=== PATIENT | male | born 1985 | race American Indian/Alaskan Native ===

== ENCOUNTER 2021-12-02 12:23 | Emergency (ER) | payer SELFPAY ==
[2021-12-02] MEDS ORDERED: MORPHINE 4 MG/1 ML INJ IV ONE ×2 (15:21→19:49)
[2021-12-02] MEDS ORDERED: ONDANSETRON 4 MG/2 ML INJ IV ONE (15:21)
[2021-12-02] MEDS ORDERED: SODIUM CHLORIDE 0.9% 1000 ML 1,000 ML IV ONE ×2 (15:21→18:03)
--- NOTE | 2021-12-02 16:09 | Emergency Department Report ---
ED General Adult HPI - General Chief complaint: Chest Pain Stated complaint: CHEST PAIN Time Seen by Provider: 12/02/21 14:17 Source: patient, EMS Mode of arrival: Stretcher Limitations: No Limitations - History of Present Illness Initial comments: Patient presents to the emergency department the chief complaint of left-sided chest pain that started this morning upon awakening. Patient describes the pain as sharp in nature and denies any radiation. Patient also complains of having abdominal pain. Patient states he has history of pancreatitis and this feels like a pancreatitis flare. patient states that he drinks vodka daily but cannot give me an amount. The patient denies having a headache or shortness of breath. -: Sudden Location: chest, abdomen Radiation: non-radiation, other (Abdominal pain radiates to the scapula) Severity scale (0 -10): 7 Quality: sharp Consistency: constant Improves with: none Worsens with: none Associated Symptoms: denies other symptoms Treatments Prior to Arrival: none - Related Data Previous Rx's Medication Instructions Recorded Last Taken Type HYDROcodone/APAP 5-325 [[place] 1 each PO Q6HR PRN #12 tablet 12/02/21 Unknown Rx 5/325] Ondansetron [Zofran Odt] 4 mg PO Q8HR #20 tab.rapdis 12/02/21 Unknown Rx hydroCHLOROthiazide [Hctz] 12.5 mg PO QDAY #30 capsule 12/02/21 Unknown Rx Allergies Allergy/AdvReac Type Severity Reaction Status Date / Time No Known Allergies Allergy Unverified 12/02/21 13:02 ED Review of Systems ROS: Stated complaint: CHEST PAIN Other details as noted in HPI Comment: All other systems reviewed and negative Constitutional: denies: chills, fever Eyes: denies: eye pain, eye discharge, vision change ENT: denies: ear pain, throat pain Respiratory: denies: cough, shortness of breath, wheezing Cardiovascular: chest pain. denies: palpitations Endocrine: no symptoms reported Gastrointestinal: abdominal pain. denies: nausea, diarrhea Genitourinary: denies: urgency, dysuria Musculoskeletal: denies: back pain, joint swelling, arthralgia Skin: denies: rash, lesions Neurological: denies: headache, weakness, paresthesias Psychiatric: denies: anxiety, depression Hematological/Lymphatic: denies: easy bleeding, easy bruising ED Past Medical Hx - Past Medical History Previous Medical History?: Yes Hx Hypertension: Yes Hx Asthma: Yes Additional medical history: Pancreatitis - Surgical History Past Surgical History?: No - Social History Smoking Status: Current Every Day Smoker Substance Use Type: Alcohol - Medications Home Medications: Home Medications Medication Instructions Recorded Confirmed Last Taken Type HYDROcodone/APAP 5-325 [[place] 1 each PO Q6HR PRN #12 tablet 12/02/21 Unknown Rx 5/325] Ondansetron [Zofran Odt] 4 mg PO Q8HR #20 tab.rapdis 12/02/21 Unknown Rx hydroCHLOROthiazide [Hctz] 12.5 mg PO QDAY #30 capsule 12/02/21 Unknown Rx ED Physical Exam - General Limitations: No Limitations General appearance: alert, in no apparent distress - Head Head exam: Present: atraumatic, normocephalic - Eye Eye exam: Present: normal appearance, PERRL, EOMI - ENT ENT exam: Present: mucous membranes moist - Neck Neck exam: Present: normal inspection - Respiratory Respiratory exam: Present: normal lung sounds bilaterally. Absent: respiratory distress - Cardiovascular Cardiovascular Exam: Present: regular rate, normal rhythm. Absent: systolic murmur, diastolic murmur, rubs, gallop - GI/Abdominal GI/Abdominal exam: Present: soft, tenderness (TTP epigastric region), normal bowel sounds. Absent: distended - Rectal Rectal exam: Present: deferred - Extremities Exam Extremities exam: Present: normal inspection - Back Exam Back exam: Present: normal inspection - Neurological Exam Neurological exam: Present: alert, oriented X3, CN II-XII intact. Absent: motor sensory deficit - Psychiatric Psychiatric exam: Present: normal affect, normal mood - Skin Skin exam: Present: warm, dry, intact, normal color. Absent: rash ED Course Vital Signs 12/02/21 12/02/21 12/02/21 12:58 13:59 14:34 Temperature 98.4 F 98.7 F Pulse Rate 84 80 79 Respiratory 16 12 Rate Blood Pressure 155/86 Blood Pressure 150/90 155/86 [Left] O2 Sat by Pulse 98 100 Oximetry 12/02/21 12/02/21 12/02/21 15:55 16:57 18:02 Temperature Pulse Rate 74 85 79 Respiratory 14 15 15 Rate Blood Pressure Blood Pressure 158/85 147/86 169/86 [Left] O2 Sat by Pulse 99 99 100 Oximetry ED Medical Decision Making - Lab Data Result diagrams: 12/02/21 15:49 12/02/21 15:49 Lab Results 12/02/21 12/02/21 12/02/21 Range/Units 15:49 15:49 15:49 WBC 9.1 (4.5-11.0) K/mm3 RBC 4.96 (3.65-5.03) M/mm3 Hgb 11.7 L (11.8-15.2) gm/dl Hct 36.8 (35.5-45.6) % MCV 74 L (84-94) fl MCH 24 L (28-32) pg MCHC 32 (32-34) % RDW 17.7 H (13.2-15.2) % Plt Count 302 (140-440) K/mm3 Add Manual Diff Complete Total Counted 100 Seg Neuts % (Manual) 85.0 H (40.0-70.0) % Band Neutrophils % 0 % Lymphocytes % (Manual) 8.0 L (13.4-35.0) % Reactive Lymphs % (Man) 0 % Monocytes % (Manual) 4.0 (0.0-7.3) % Eosinophils % (Manual) 1.0 (0.0-4.3) % Basophils % (Manual) 2.0 H (0.0-1.8) % Metamyelocytes % 0 % Myelocytes % 0 % Promyelocytes % 0 % Blast Cells % 0 % Nucleated RBC % Not Reportable Seg Neutrophils # Man 7.7 (1.8-7.7) K/mm3 Band Neutrophils # 0.0 K/mm3 Lymphocytes # (Manual) 0.7 L (1.2-5.4) K/mm3 Abs React Lymphs (Man) 0.0 K/mm3 Monocytes # (Manual) 0.4 (0.0-0.8) K/mm3 Eosinophils # (Manual) 0.1 (0.0-0.4) K/mm3 Basophils # (Manual) 0.2 H (0.0-0.1) K/mm3 Metamyelocytes # 0.0 K/mm3 Myelocytes # 0.0 K/mm3 Promyelocytes # 0.0 K/mm3 Blast Cells # 0.0 K/mm3 WBC Morphology Not Reportable Hypersegmented Neuts Not Reportable Hyposegmented Neuts Not Reportable Hypogranular Neuts Not Reportable Smudge Cells Not Reportable Toxic Granulation Not Reportable Toxic Vacuolation Not Reportable Dohle Bodies Not Reportable Pelger-Huet Anomaly Not Reportable Huyen Rods Not Reportable Platelet Estimate Consistent w auto Clumped Platelets Not Reportable Plt Clumps, EDTA Not Reportable Large Platelets Not Reportable Giant Platelets Not Reportable Platelet Satelliting Not Reportable Plt Morphology Comment Not Reportable RBC Morphology Not Reportable Dimorphic RBCs Not Reportable Polychromasia Not Reportable Hypochromasia 1+ Poikilocytosis 1+ Anisocytosis 1+ Microcytosis 1+ Macrocytosis Rare Spherocytes Rare Pappenheimer Bodies Not Reportable Sickle Cells Not Reportable Target Cells 1+ Tear Drop Cells Not Reportable Ovalocytes Not Reportable Helmet Cells Not Reportable Flaherty-Aptos Bodies Not Reportable [place] Rings Not Reportable Leslie Cells Not Reportable Bite Cells Not Reportable Crenated Cell Not Reportable Elliptocytes Not Reportable Acanthocytes (Spur) Not Reportable Rouleaux Not Reportable Hemoglobin C Crystals Not Reportable Schistocytes Rare Malaria parasites Not Reportable Jc Bodies Not Reportable Hem Pathologist Commnt No Sodium 141 (137-145) mmol/L Potassium 3.6 (3.6-5.0) mmol/L Chloride 99.5 (98-107) mmol/L Carbon Dioxide 22 (22-30) mmol/L Anion Gap 23 mmol/L BUN 8 L (9-20) mg/dL Creatinine 0.6 L (0.8-1.3) mg/dL Estimated GFR > 60 ml/min BUN/Creatinine Ratio 13 % Glucose 64 L (75-100) mg/dL Calcium 9.1 (8.4-10.2) mg/dL Magnesium 1.60 L (1.7-2.3) mg/dL Total Bilirubin 0.50 (0.1-1.2) mg/dL AST 30 (5-40) units/L ALT 24 (7-56) units/L Alkaline Phosphatase 77 (35-129) units/L Troponin T < 0.010 (0.00-0.029) ng/mL Total Protein 7.2 (6.3-8.2) g/dL Albumin 4.4 (3.9-5) g/dL Albumin/Globulin Ratio 1.6 % Lipase 31 (13-60) units/L 12/02/21 Range/Units 17:22 WBC (4.5-11.0) K/mm3 RBC (3.65-5.03) M/mm3 Hgb (11.8-15.2) gm/dl Hct (35.5-45.6) % MCV (84-94) fl MCH (28-32) pg MCHC (32-34) % RDW (13.2-15.2) % Plt Count (140-440) K/mm3 Add Manual Diff Total Counted Seg Neuts % (Manual) (40.0-70.0) % Band Neutrophils % % Lymphocytes % (Manual) (13.4-35.0) % Reactive Lymphs % (Man) % Monocytes % (Manual) (0.0-7.3) % Eosinophils % (Manual) (0.0-4.3) % Basophils % (Manual) (0.0-1.8) % Metamyelocytes % % Myelocytes % % Promyelocytes % % Blast Cells % % Nucleated RBC % Seg Neutrophils # Man (1.8-7.7) K/mm3 Band Neutrophils # K/mm3 Lymphocytes # (Manual) (1.2-5.4) K/mm3 Abs React Lymphs (Man) K/mm3 Monocytes # (Manual) (0.0-0.8) K/mm3 Eosinophils # (Manual) (0.0-0.4) K/mm3 Basophils # (Manual) (0.0-0.1) K/mm3 Metamyelocytes # K/mm3 Myelocytes # K/mm3 Promyelocytes # K/mm3 Blast Cells # K/mm3 WBC Morphology Hypersegmented Neuts Hyposegmented Neuts Hypogranular Neuts Smudge Cells Toxic Granulation Toxic Vacuolation Dohle Bodies Pelger-Huet Anomaly Huyen Rods Platelet Estimate Clumped Platelets Plt Clumps, EDTA Large Platelets Giant Platelets Platelet Satelliting Plt Morphology Comment RBC Morphology Dimorphic RBCs Polychromasia Hypochromasia Poikilocytosis Anisocytosis Microcytosis Macrocytosis Spherocytes Pappenheimer Bodies Sickle Cells Target Cells Tear Drop Cells Ovalocytes Helmet Cells Flaherty-Aptos Bodies [place] Rings Leslie Cells Bite Cells Crenated Cell Elliptocytes Acanthocytes (Spur) Rouleaux Hemoglobin C Crystals Schistocytes Malaria parasites Jc Bodies Hem Pathologist Commnt Sodium (137-145) mmol/L Potassium (3.6-5.0) mmol/L Chloride (98-107) mmol/L Carbon Dioxide (22-30) mmol/L Anion Gap mmol/L BUN (9-20) mg/dL Creatinine (0.8-1.3) mg/dL Estimated GFR ml/min BUN/Creatinine Ratio % Glucose (75-100) mg/dL Calcium (8.4-10.2) mg/dL Magnesium (1.7-2.3) mg/dL Total Bilirubin (0.1-1.2) mg/dL AST (5-40) units/L ALT (7-56) units/L Alkaline Phosphatase (35-129) units/L Troponin T < 0.010 (0.00-0.029) ng/mL Total Protein (6.3-8.2) g/dL Albumin (3.9-5) g/dL Albumin/Globulin Ratio % Lipase (13-60) units/L Critical care attestation.: If time is entered above; I have spent that time in minutes in the direct care of this critically ill patient, excluding procedure time. ED Disposition Clinical Impression: Hypertension, Nonspecific chest pain, Pancreatitis Disposition: 01 HOME / SELF CARE / HOMELESS Is pt being admited?: No Does the pt Need Aspirin: No Condition: Stable Instructions: Hypertension (ED), Nonspecific Chest Pain, Adult, Chronic P ancreatitis, Acute Pancreatitis Additional Instructions: return if worse Prescriptions: hydroCHLOROthiazide [Hctz] 12.5 mg PO QDAY #30 capsule HYDROcodone/APAP 5-325 [[place] 5/325] 1 each PO Q6HR PRN #12 tablet PRN Reason: Pain Ondansetron [Zofran Odt] 4 mg PO Q8HR #20 tab.rapdis Referrals: PRIMARY CARE, [Primary Care Provider] - 3-5 Days MAXWELL JOSEPH MD [Staff Physician] - 3-5 Days Time of Disposition: 19:53
[2021-12-02 16:10] LABS: Hematocrit 36.8 % (35.5-45.6); Hemoglobin 11.7 gm/dl (11.8-15.2); Mean Corpuscular HGB Conc 32 % (32-34); Mean Corpuscular Volume 74 fl (84-94); Platelet Count 302 K/mm3 (140-440); Red Blood Count 4.96 M/mm3 (3.65-5.03); Red Cell Distribution Width 17.7 % (13.2-15.2)
[2021-12-02 16:31] LABS: Alanine Aminotransferase 24 units/L (7-56); Albumin 4.4 g/dL (3.9-5); Blood Urea Nitrogen 8 mg/dL (9-20); Calcium 9.1 mg/dL (8.4-10.2); Hemolysis Index 0
[2021-12-02 16:34] LABS: BUN/Creatinine Ratio 13
[2021-12-02 17:45] LABS: Total Cells Counted 100
[2021-12-02 17:47] LABS: Anisocytosis 1+; Hypochromasia 1+; Macrocytosis Rare
[2021-12-02 17:48] LABS: Platelet Estimate Consistent w Auto; Poikilocytosis 1+; Schistocytes Rare; Spherocytes Rare; Target Cells 1+
--- NOTE | 2021-12-02 17:51 | Cat Scan Report ---
CT ABDOMEN AND PELVIS WITH IV CONTRAST INDICATION: epigastric abdominal pain. COMPARISON: None available. TECHNIQUE: All CT scans at this facility use dose modulation, automated exposure control, iterative reconstructi on or weight based dosing, when appropriate, to reduce radiation dose to as low as reasonably achieva ble. FINDINGS: Lung Bases: No significant abnormality. Skeletal System: No acute abnormality. ABDOMEN: Liver: Advanced diffuse hepatic steatosis. Hepatomegaly. Gallbladder: No significant abnormality. Bile Ducts: No significant abnormality. Adrenals: No significant abnormality. Right Kidney: No significant abnormality. Left Kidney: No significant abnormality. Pancreas: The pancreatic head is edematous. Within the pancreatic head, there is a circumscribed 1.3 cm low-density focus which may be cystic. The pancreatic body and tail are unremarkable. There is no duct dilatation. Spleen: No significant abnormality. Upper GI tract: No significant abnormality. Lymph Nodes: No significant adenopathy. Aorta: No significant abnormality. Additional Findings: No significant abnormality. PELVIS: Colon: No significant abnormality. Urinary Bladder and Distal Ureters: No significant abnormality. Appendix: No significant abnormality. Lymph Nodes: No significant adenopathy. Additional Findings: None. IMPRESSION: 1. Pancreatic head is mildly edematous suggestive of focal pancreatitis. 1.3 cm cyst in the pancreat ic head may be a pancreatitis related fluid collection. Gallbladder is unremarkable. No biliary dilat ation. 2. Hepatomegaly and advanced hepatic steatosis. Signer Name: Charlie Crowder MD Signed: 12/02/2021 5:47 PM Workstation Name: [id number]
[2021-12-02] MEDS ORDERED: MORPHINE 4 MG/1 ML INJ IM ONE (18:00)
[2021-12-02 18:03] VITALS: BP 169/86
[2021-12-02] MEDS ORDERED: hydroCHLOROthiazide 25 MG TAB PO ONE (19:51)
[2021-12-02] MEDS ORDERED: diphenhydrAMINE 25 MG CAP PO PRN (20:31)
--- NOTE | 2021-12-03 13:26 | Electrocardiograph Report ---
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
--- NOTE | 2021-12-03 13:26 | Electrocardiograph Report ---
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
== END 2021-12-02 20:47 | disposition home or self-care (01) ==
LOC: ED 12:23
DX: R07.9 Chest pain, unspecified (principal); I10 Essential (primary) hypertension; K85.90 Acute pancreatitis without necrosis or infection, unspecified; F17.200 Nicotine dependence, unspecified, uncomplicated
CPT/HCPCS: 36415; 74177; 80053; 83690; 83735; 84484; 85007; 85025; 93005; 96361; 96372; 96374; 96375; 96376; 99284; J2270; J2405; J7030; Q9967